=== PATIENT | female | born 2000 | race Caucasian/White ===

== ENCOUNTER → 2020-03-02 | Outpatient (CLI) | payer OTHER ==
--- NOTE | 2020-03-02 10:59 | REP ---
INDICATION: BACK PAIN COMPARISON: None. TECHNIQUE: AP, lateral, and swimmers views. FINDINGS: Alignment and kyphosis is maintained. Vertebral bodies intact. No acute fracture / compression injury or subluxation. No degenerative changes. Paravertebral soft tissues are normal. IMPRESSION: Normal thoracic spine series. <Electronically signed by eKith Beyer > 03/02/20 [id number]
== END ==
LOC: M RAD 10:15
PROVIDERS: ATTEND Physician Assistant Medical
DX: S23.3XXA Sprain of ligaments of thoracic spine, initial encounter (principal); Y93.9 Activity, unspecified; Y92.009 Unspecified place in unspecified non-institutional (private) residence as the place of occurrence of the external cause

== ENCOUNTER 2020-05-03 13:09 | Emergency (ER) | payer OTHER ==
[~2020-05-03] VITALS: Ht 160 cm; Wt 57.7 kg
[2020-05-03] MEDS ORDERED: AZO1CAP PO (13:16)
[2020-05-03] MEDS ORDERED: ZYRTTAB8 PO (13:16)
[2020-05-03] MEDS ORDERED: CIPR-249 PO (14:15)
[2020-05-03] MEDS ORDERED: CIPROFLOXACIN 500MG TABLET PO ONE (14:15)
[2020-05-03 14:39] VITALS: BP 126/70
== END 2020-05-03 14:42 | disposition home or self-care (01) ==
LOC: M ED 13:09
DX: N39.0 Urinary tract infection, site not specified (principal); Z79.899 Other long term (current) drug therapy; Z97.5 Presence of (intrauterine) contraceptive device

== ENCOUNTER 2020-06-10 09:40 | Emergency (ER) | payer OTHER ==
[~2020-06-10] VITALS: Ht 160 cm; Wt 58.8 kg
[~2020-06-10 09:40] MED LIST: AZO1CAP PO; CIPR-249 PO; ZYRTTAB8 PO
--- OUTSIDE RECORDS SUMMARY | 2020-06-10 09:51 | CCD ---
Author Author [facility] Address Unknown Phone Unavailable Support Name Relationship Address Phone [facility] Next Of Kin [address] [place] [address] Unavailable Re-disclosure Warning The records that you are about to access may contain information from federally-assisted alcohol or drug abuse programs. If such information is present, then the following federally mandated warning applies: This information has been disclosed to you from records protected by federal confidentiality rules (42 CFR part 2). The federal rules prohibit you from making any further disclosure of this information unless further disclosure is expressly permitted by the written consent of the person to whom it pertains or as otherwise permitted by 42 CFR part 2. A general authorization for the release of medical or other information is NOT sufficient for this purpose. The Federal rules restrict any use of the information to criminally investigate or prosecute any alcohol or drug abuse patient.The records that you are about to access may contain highly sensitive health information, the redisclosure of which is protected by Article 27-F of the [facility] Public Health law. If you continue you may have access to information: Regarding HIV / AIDS; Provided by facilities licensed or operated by the [facility] Office of Mental Health; or Provided by the [facility] Office for People With Developmental Disabilities. If such information is present, then the following [facility] mandated warning applies: This information has been disclosed to you from confidential records which are protected by state law. State law prohibits you from making any further disclosure of this information without the specific written consent of the person to whom it pertains, or as otherwise permitted by law. Any unauthorized further disclosure in violation of state law may result in a fine or shelter sentence or both. A general authorization for the release of medical or other information is NOT sufficient authorization for further disc losure. Insurance Providers Payer name Policy type / Coverage type Policy ID Covered republican ID Covered republican's relationship to wang Policy Wang Plan [facility] ACTIVE DUTY [id number] SP [id number] Results ID Date Data Source [id number] 05/29/2020 11:30:00 AM EST [facility] Name Value Range Interpretation Code Description Data Renata rce(s) Supporting Document(s) SARS coronavirus 2 RNA Not Detected [facility] This lab was ordered by [facility] Laboratory and reported by [facility]. Procedure
[2020-06-10] MEDS ORDERED: NS 1,000 ML IV ONE (10:45)
[2020-06-10 11:20] LABS: BASO # 0.1 10^3/uL (0.0-0.2); BASO % 0.6 % (0.0-1.0); EOS # 0.1 10^3/uL (0.0-0.5); EOS % 1.4 % (0.0-3.0); HEMATOCRIT 43.9 % (36.0-47.0); HEMOGLOBIN 14.5 g/dl (12.0-15.5); LYMPH # 1.4 10^3/uL (1.5-5.0); LYMPH % 14.6 % (24.0-44.0); MEAN CORPUSCULAR HEMOGLOBIN 28.5 pg (27.0-33.0); MEAN CORPUSCULAR VOLUME 86.4 fl (80.0-96.0); MONO # 0.5 10^3/uL (0.0-0.8); MONO % 5.5 % (0.0-5.0); NEUTROPHILS # 7.5 10^3/uL (1.5-8.5); NEUTROPHILS % 77.6 % (36.0-66.0); PLATELET COUNT, AUTOMATED 303 10^3/uL (150-450); RED BLOOD COUNT 5.08 10^6/uL (4.00-5.40); WHITE BLOOD COUNT 9.7 10^3/uL (4.0-10.0)
--- OUTSIDE RECORDS SUMMARY | 2020-06-10 11:21 | CCD ---
Author Author [facility] Address Unknown Phone Unavailable Support Name Relationship Address Phone [facility] Next Of Kin [address] [place] [address] Unavailable Re-disclosure Warning The records that you [...] is protected by Article 27-F of the [facility] Public Health law. If you continue you may have access to information: Regarding HIV / AIDS; Provided by facilities licensed or operated by the [facility] Office of Mental Health; or Provided by the [facility] Office for People With Developmental Disabilities. If such information is present, then the following [facility] mandated warning applies: This information has been [...] law may result in a fine or senior living sentence or both. A general authorization for the release of medical or other information is NOT sufficient authorization for further disc losure. Insurance Providers Payer name Policy type / Coverage type Policy ID Covered constitution party ID Covered constitution party's relationship to wang Policy Wang Plan [facility] ACTIVE DUTY [id number] SP [id number] Results ID Date Data Source [id number] 05/29/2020 11:30:00 AM EST [facility] Name Value Range Interpretation Code Description Data Renata rce(s) Supporting Document(s) SARS coronavirus 2 RNA Not Detected [facility] This lab was ordered by [facility] Laboratory and reported by [facility]. Procedure
[2020-06-10 11:41] LABS: HCG, SERUM QUALITATIVE NEGATIVE (NEGATIVE)
[2020-06-10 11:58] LABS: BLOOD UREA NITROGEN 11 MG/DL (7-18); CALCIUM LEVEL 9.7 MG/DL (8.5-10.1); CARBON DIOXIDE LEVEL 32 MEQ/L (21-32); CHLORIDE LEVEL 104 MEQ/L (98-107); CREATININE FOR GFR 0.73 MG/DL (0.55-1.30); GLUCOSE, FASTING 74 MG/DL (70-100); POTASSIUM SERUM 4.6 MEQ/L (3.5-5.1); SODIUM LEVEL 139 MEQ/L (136-145)
[2020-06-10] MEDS ORDERED: ISOVUE-370 76% 100ML VIAL As Ordered ONE (12:00)
--- NOTE | 2020-06-10 12:20 | REP ---
INDICATION: r ight flank/llq pain. COMPARISON: None. TECHNIQUE: Helical scanning was acquired and 4 mm axial images are re-formatted. Coronal and sagittal MPR images were generated and reviewed. The contrast enhancement dose is 100 mL of intravenous Isovue 370. FINDINGS: Preliminary digital security escort radiograph shows an unremarkable bowel gas pattern. There is an IUD in the central pelvis. Axial CT images at lung window settings demonstrate that the lung bases are clear. There is no evidence of pleural effusion or upper abdominal ascites. The liver and the spleen are normal in size homogeneous in texture. There is an accessory splenule posteriorly. No focal liver lesion is seen. No abnormality is noted in the gallbladder. The pancreas is unremarkable. Normal adrenal glands are seen. The kidneys enhance symmetrically and appear morphologically intact. Extrarenal pelvis configuration is seen. No hydronephrosis is noted. A normal appendix is seen in the right lower quadrant medial to the cecum. Small and large bowel loops are unremarkable in the abdomen and pelvis. Uterus is retroverted retroflexed. IUD appears to be in good position. There is a 3.7 cm cyst in the right ovary. No left ovarian abnormality is seen. No free fluid is noted. Urinary bladder is unremarkable. No abdominal wall defect or significant bony lesion. IMPRESSION: IUD in place. Uterus uterus retroverted retroflexed. 3.7 cm cystic area right ovary. Normal appendix. No urinary tract calculus seen. <Electronically signed by Iván Shukla > 06/10/20 [id number]
[2020-06-10] MEDS ORDERED: CIPR-249 PO (12:39)
[2020-06-10 12:54] VITALS: BP 114/56
== END 2020-06-10 12:58 | disposition home or self-care (01) ==
LOC: M ED 09:40
DX: N39.0 Urinary tract infection, site not specified (principal); N83.201 Unspecified ovarian cyst, right side; Z97.5 Presence of (intrauterine) contraceptive device
CPT/HCPCS: 36415; 74177; 80048; 81001; 84703; 85025; 87086; 96360; 96361; 99284; Q9967

== ENCOUNTER 2020-07-30 16:41 | Emergency (ER) | payer OTHER ==
[~2020-07-30] VITALS: Ht 160 cm; Wt 56.9 kg
[2020-07-30] MEDS ORDERED: MIRE1IUD IU (16:48)
[2020-07-30] MEDS ORDERED: ACETAMINOPHEN 500 MG TAB PO ONE (18:00)
[2020-07-30] MEDS ORDERED: NS 1,000 ML IV ONE (18:50)
[2020-07-30 19:12] LABS: RSV AMPLIFICATION NEGATIVE (NEGATIVE)
[2020-07-30 19:18] LABS: BASO % 0.3 % (0.0-1.0); HEMATOCRIT 39.1 % (36.0-47.0); HEMOGLOBIN 13.4 g/dl (12.0-15.5); LYMPH # 0.6 10^3/uL (1.5-5.0); LYMPH % 6.1 % (24.0-44.0); MEAN CORPUSCULAR HEMOGLOBIN 29.7 pg (27.0-33.0); MEAN CORPUSCULAR HGB CONC 34.3 g/dl (32.0-36.5); MEAN CORPUSCULAR VOLUME 86.7 fl (80.0-96.0); MONO # 0.9 10^3/uL (0.0-0.8); MONO % 8.2 % (2.0-8.0); NEUTROPHILS # 8.9 10^3/uL (1.5-8.5); NEUTROPHILS % 84.5 % (36.0-66.0); PLATELET COUNT, AUTOMATED 271 10^3/uL (150-450); RED BLOOD COUNT 4.51 10^6/uL (4.00-5.40); WHITE BLOOD COUNT 10.6 10^3/uL (4.0-10.0)
[2020-07-30 19:35] LABS: ERYTHROCYTE SEDIMENTATION RATE 22 mm/hr (0-20)
[2020-07-30 19:49] LABS: ALT/SGPT 14 U/L (12-78); BILIRUBIN,DIRECT 0.3 MG/DL (0.0-0.2); BILIRUBIN,TOTAL 1.4 MG/DL (0.2-1.0); BLOOD UREA NITROGEN 11 MG/DL (7-18); C REACTIVE PROTEIN QUANTITATIV 5.92 MG/DL (0.00-0.30); CALCIUM LEVEL 8.7 MG/DL (8.5-10.1); CARBON DIOXIDE LEVEL 24 MEQ/L (21-32); CHLORIDE LEVEL 106 MEQ/L (98-107); CREATININE FOR GFR 0.85 MG/DL (0.55-1.30); GLUCOSE, FASTING 91 MG/DL (70-100); LIPASE 107 U/L (73-393); POTASSIUM SERUM 3.8 MEQ/L (3.5-5.1); SODIUM LEVEL 139 MEQ/L (136-145); TOTAL PROTEIN 6.9 GM/DL (6.4-8.2)
[2020-07-30] MEDS ORDERED: ISOVUE-370 76% 100ML VIAL As Ordered ONE (20:00)
[2020-07-30 20:09] LABS: HCG, SERUM QUALITATIVE NEGATIVE (NEGATIVE)
[2020-07-30 21:18] LABS: MONO REFLEX EBV COMP NEGATIVE (NEGATIVE)
--- NOTE | 2020-07-30 21:25 | REPVR ---
PROCEDURE INFORMATION: Exam: CT Neck With Contrast Exam date and time: 07/30/2020 8:25 PM Age: 20 years old Clinical indication: Mass, lump, or swelling in neck; Additional info: Concern for abscess R side into neck TECHNIQUE: Imaging protocol: Computed tomography images of the neck with intravenous contrast. Radiation optimization: All CT scans at this facility use at least one of these dose optimization techniques: automated exposure control; mA and/or kV adjustment per patient size (includes targeted exams where dose is matched to clinical indication); or iterative reconstruction. Contrast material: ISOVUE 370; Contrast volume: 75 ml; Contrast route: INTRAVENOUS (IV); COMPARISON: No relevant prior studies available. FINDINGS: Mastoid air cells: Clear mastoid air cells. Paranasal sinuses: Clear paranasal sinuses. Nasopharynx: Clear nasopharynx. There is severe enlargement of the right tonsil measuring 2 cm by 3.3 cm. There are several lymph nodes right and left side of the neck. Largest at the The hyoid bone appears intact. The dens appears intact in the lateral masses of C1 appear symmetric. Submandibular/Parotid glands: The submandibular glands appear symmetric. Symmetric parotid glands. Thyroid: Normal appearing thyroid. Trachea: Visualized trachea is unremarkable. Lungs: The apical portions of the lung appear clear. Bones/joints: See "Nasopharynx" finding. Vasculature: The the there is opacification of the vertebral arteries. Soft tissues: Unremarkable. No significant soft tissue swelling. IMPRESSION: 1. Diffuse enlargement of the right tonsil 3.3 cm in length by 2 cm in greatest thickness. This may be an inflamed and infected right tonsil. 2. 8 lymph nodes at the right carotid bifurcation more prominent than the right with the largest is 1.3 cm. Electronically signed by: Rigo Camilo On 07/30/2020 21:25:00 PM
[2020-07-30] MEDS ORDERED: AMPICILLIN SOD/SULBACTAM SOD 3 GM in D5W MINI-BAG PLUS 100 ML IV ONE (21:35)
[2020-07-30] MEDS ORDERED: dexameTHASONE 20MG/5ML VIAL (J1100 PER 1MG) IV ONE (21:35)
[2020-07-30] MEDS ORDERED: AUGM875T28 PO (21:35)
[2020-07-30 22:24] VITALS: BP 109/54
[2020-08-01 15:10] LABS: EBV VIRAL CAPSID AG IgM <36.0 U/mL (0.0-35.9)
== END 2020-07-30 22:36 | disposition home or self-care (01) ==
LOC: M ED 16:41
DX: J03.90 Acute tonsillitis, unspecified (principal); M79.10 Myalgia, unspecified site; R51.9 Headache, unspecified; R42 Dizziness and giddiness; R53.83 Other fatigue; Z79.899 Other long term (current) drug therapy; Z79.3 Long term (current) use of hormonal contraceptives
CPT/HCPCS: 70491; 80048; 80076; 83605; 83690; 84703; 85025; 85652; 86140; 86308; 86664; 86665; 87040; 87631; 87880; 96361; 96365; 96375; 99284; J1100; Q9967

== ENCOUNTER 2020-07-31 09:53 | Emergency (ER) | payer OTHER ==
[~2020-07-31] VITALS: Ht 160 cm; Wt 58.7 kg
[~2020-07-31 09:53] MED LIST changes: +AUGM875T28 PO; +MIRE1IUD IU
[2020-07-31] MEDS ORDERED: AMPICILLIN SOD/SULBACTAM SOD 3 GM in D5W MINI-BAG PLUS 100 ML IV ONE (10:25)
[2020-07-31 11:09] VITALS: BP 109/63
[2020-08-01] MEDS ORDERED: PROBCAP14 PO (08:16)
[2020-08-01] MEDS ORDERED: VITA250T4 PO (08:16)
== END 2020-07-31 11:12 | disposition home or self-care (01) ==
LOC: M ED 09:53
DX: J03.90 Acute tonsillitis, unspecified (principal); Z79.899 Other long term (current) drug therapy

== ENCOUNTER 2020-08-01 06:48 | Emergency (ER) | payer OTHER ==
[~2020-08-01] VITALS: Ht 160 cm; Wt 59.6 kg
[2020-08-01] MEDS ORDERED: AMPICILLIN SOD/SULBACTAM SOD 3 GM in D5W MINI-BAG PLUS 100 ML IV ONE (07:20)
[2020-08-01] MEDS ORDERED: VITA250T4 PO (08:16)
[2020-08-01] MEDS ORDERED: PROBCAP14 PO (08:16)
[2020-08-01 08:18] VITALS: BP 107/57
== END 2020-08-01 08:21 | disposition home or self-care (01) ==
LOC: M ED 06:48
DX: H92.01 Otalgia, right ear (principal); J03.90 Acute tonsillitis, unspecified; Z79.3 Long term (current) use of hormonal contraceptives; Z79.899 Other long term (current) drug therapy

== ENCOUNTER 2020-10-20 15:28 | Emergency (ER) | payer OTHER ==
[~2020-10-20] VITALS: Ht 160 cm; Wt 58.4 kg
[~2020-10-20 15:28] MED LIST changes: +PROBCAP14 PO; +VITA250T4 PO
[2020-10-20 17:07] LABS: GLUCOSE, URINE (UA) MANUAL NEGATIVE (NEGATIVE)
[2020-10-20 17:08] LABS: BILIRUBIN, URINE MANUAL OBSCURED (NEGATIVE); KETONE, URINE MANUAL NEGATIVE (NEGATIVE); UROBILINOGEN, URINE MANUAL OBSCURED mg/dl (NORMAL)
[2020-10-20 17:25] LABS: BACTERIA, URINE SMALL AMOUNT; HYALINE CAST, URINE NONE SEEN /lpf (0-1); RBC, URINE 0-1 /hpf (0-3); SQUAMOUS EPITHELIAL CELL URINE SMALL AMOUNT /hpf (SMALL AMT)
[2020-10-20] MEDS ORDERED: NITROFURANTOIN (MACROBID) 100 MG CAP PO ONE (18:15)
[2020-10-20] MEDS ORDERED: PYRI1TAB5 PO (18:17)
[2020-10-20] MEDS ORDERED: MACR100C43 PO (18:17)
[2020-10-20 18:35] VITALS: BP 106/75
[2020-10-22] MEDS ORDERED: VANC1CAP6 PO (02:00)
== END 2020-10-20 18:39 | disposition home or self-care (01) ==
LOC: M ED 15:28
DX: R19.7 Diarrhea, unspecified (principal); R30.0 Dysuria; Z79.899 Other long term (current) drug therapy

== ENCOUNTER 2020-11-11 09:43 | Emergency (ER) | payer OTHER ==
[~2020-11-11 09:43] MED LIST changes: +MACR100C43 PO; +PYRI1TAB5 PO; +VANC1CAP6 PO
[2020-11-11] MEDS ORDERED: NS 1,000 ML IV ONE ×2 (11:05→12:30)
[2020-11-11 11:31] LABS: BASO % 0.3 % (0.0-1.0); EOS % 0.2 % (0.0-3.0); HEMATOCRIT 37.1 % (36.0-47.0); HEMOGLOBIN 12.4 g/dl (12.0-15.5); LYMPH # 1.1 10^3/uL (1.5-5.0); LYMPH % 8.8 % (24.0-44.0); MEAN CORPUSCULAR HEMOGLOBIN 28.6 pg (27.0-33.0); MEAN CORPUSCULAR HGB CONC 33.4 g/dl (32.0-36.5); MEAN CORPUSCULAR VOLUME 85.5 fl (80.0-96.0); MONO % 8.2 % (2.0-8.0); NEUTROPHILS # 9.8 10^3/uL (1.5-8.5); NEUTROPHILS % 82.1 % (36.0-66.0); PLATELET COUNT, AUTOMATED 260 10^3/uL (150-450); RED BLOOD COUNT 4.34 10^6/uL (4.00-5.40); WHITE BLOOD COUNT 11.9 10^3/uL (4.0-10.0)
--- NOTE | 2020-11-11 11:52 | REP ---
INDICATION: llq pain r/o cyst, assess IUD placement COMPARISON: Correlation with CT dated 06/10/2020 TECHNIQUE: Transabdominal pelvic ultrasound followed by transvaginal examination for better evaluation of the endometrium and adnexa with color Doppler evaluation of the ovaries. FINDINGS: Bladder is unremarkable and measures 10.7 x 6.4 x 10.9 cm. Normal anteverted uterus measures 5.9 x 3.9 x 4.1 cm. The endometrial complex measures 6.2 mm thickness. IUD in central satisfactory position. Bilateral ovaries are normal in appearance and vascularity without evidence for torsion. Normal bilateral follicles noted. Right ovary measures 2.9 x 1.7 x 2.0 cm; R I = venous flow detected. Left ovary measures 3.7 x 2.1 x 1.5 cm; R I = 0.50. Small amount of pelvic free fluid is nonspecific and likely physiologic. IMPRESSION: Normal pelvic ultrasound. <Electronically signed by Keith Beyer > 11/11/20 [id number]
[2020-11-11 11:55] LABS: ALBUMIN 3.4 GM/DL (3.2-5.2); ALT/SGPT 17 U/L (12-78); BILIRUBIN,DIRECT 0.3 MG/DL (0.0-0.2); BILIRUBIN,TOTAL 1.2 MG/DL (0.2-1.0); BLOOD UREA NITROGEN 11 MG/DL (7-18); CALCIUM LEVEL 8.8 MG/DL (8.5-10.1); CARBON DIOXIDE LEVEL 29 MEQ/L (21-32); CHLORIDE LEVEL 104 MEQ/L (98-107); CREATININE FOR GFR 0.77 MG/DL (0.55-1.30); GLUCOSE, FASTING 87 MG/DL (70-100); POTASSIUM SERUM 3.9 MEQ/L (3.5-5.1); SODIUM LEVEL 137 MEQ/L (136-145); TOTAL PROTEIN 6.6 GM/DL (6.4-8.2)
--- NOTE | 2020-11-11 12:31 | REP ---
INDICATION: left abd pain, constipation. COMPARISON: None. FINDINGS: KUB shows the intestinal gas pattern to be nonspecific. The organ silhouettes insofar as delineated are unremarkable. There is no evidence of free intraperitoneal air. The stool pattern is within normal limits. There is a T-shaped radiodensity in the pelvis consistent with an IUD IMPRESSION: Nonspecific. <Electronically signed by Roshan Jiménez > 11/11/20 [id number]
[2020-11-11 12:51] VITALS: BP 115/63
[2020-11-11] MEDS ORDERED: MIRA3350 PO (14:11)
== END 2020-11-11 14:33 | disposition home or self-care (01) ==
LOC: M ED 09:43 → EDBD 09:43 → M ED 14:33
DX: R10.9 Unspecified abdominal pain (principal); K59.00 Constipation, unspecified; R42 Dizziness and giddiness; Z86.19 Personal history of other infectious and parasitic diseases; Z97.5 Presence of (intrauterine) contraceptive device

== ENCOUNTER → 2021-07-23 | Outpatient (REF) ==
[~2021-07-23] MED LIST changes: +MIRA3350 PO
== END ==
LOC: M PLARAD 09:54 → M PLAIMG 09:54
PROVIDERS: ATTEND Internal Medicine
DX: R07.9 Chest pain, unspecified (principal)